=== PATIENT | male | born 1995 | race Caucasian/White ===

== ENCOUNTER 2016-10-30 13:06 | Emergency (ER) | payer SELFPAY ==
[~2016-10-30] VITALS: Ht 167.6 cm; Wt 70.0 kg
[~2016-10-30 13:06] MED LIST: CORTIS10A AD; TYLE3 PO
[2016-10-30 13:08] VITALS: BP 139/82; PULSE 76; RESP 20; TEMP 97.7; O2SAT 100
--- NOTE | 2016-10-30 13:48 | PD ---
HPI Chief Complaint: ENT Complaint Time Seen by Provider: 13:40 Travel History International Travel<30 days: No Contact w/Intl Traveler<30days: No Traveled to known affect area: No History of Present Illness HPI 21-year-old male with no significant past medical history presents for evaluation of cough and congestion and scratchy throat. Symptoms started 4 days ago. He has been using TheraFlu which seems to help. He reports that he had to miss work over the past 2 days and he is here requesting a note to return to work tomorrow. He is reporting improvement of his symptoms. He has had no fevers or chills. He reports that his younger brother has had a scratchy throat as well. Denies rash, recent travel. He has no other complaints. [facility] Past Medical History Immunizations Current: Yes Social History Alcohol Use: No Tobacco Use: No Substance Use: No Allergies-Medications (Allergen,Severity, Reaction): Coded Allergies: No Known Allergies (Verified , 10/30/16) Reported Meds & Prescriptions Reported Meds & Active Scripts Active Tylenol #3 (Acetaminophen/Codeine Phosphate) 300 Mg/30 Mg Tab 1 Tab PO Q6HPRN FOR PAIN Cortisporin Otic Suspension (Neomycin/Polymyxin/Hydrocortisone) 10 Ml Susp 4 Drop AD QID 10 Days Review of Systems Except as stated in HPI: all other systems reviewed are Neg Physical Exam Narrative GENERAL: Well-developed well-nourished male in no acute distress SKIN: Warm and dry. HEAD: Atraumatic. Normocephalic. EYES: Pupils equal and round. No scleral icterus. No injection or drainage. ENT: No nasal bleeding or discharge. Mucous membranes pink and moist. No oral pharyngeal erythema or exudate. NECK: Trachea midline. No JVD. No lymphadenopathy. Neck supple full range of motion. CARDIOVASCULAR: Regular rate and rhythm. No murmur appreciated. RESPIRATORY: No accessory muscle use. Clear to auscultation. Breath sounds equal bilaterally. Data Data Last Documented VS Vital Signs Date Time Temp Pulse Resp B/P Pulse Ox O2 Delivery O2 Flow Rate FiO2 10/30/16 13:08 97.7 76 20 139/82 100 Room Air MDM Medical Decision Making Medical Screen Exam Complete: Yes Emergency Medical Condition: No Medical Record Reviewed: Yes Differential Diagnosis Bronchitis, pharyngitis, tonsillitis, peritonsillar abscess, influenza, pneumonia, reactive airway disease Narrative Course 21-year-old male presents with 4 days of cough, congestion, scratchy throat. Physical examination is reassuring. He appears to have a viral upper respiratory infection. His primary motivation for coming here today is to receive a note to return to work tomorrow. He is not having an emergent medical condition. A medical screening exam was performed: At the time of evaluation the presenting medical condition was determined not to be of an emergent nature. The patient was given the option of receiving additional care, but declined. Patient was given options for additional community resources from which to obtain care. The Patient Has Been advised to seek medical attention for their presenting complaint. The patient has been advised to return to the ER at any time if an emergent condition develops. Diagnosis Primary Impression: Encounter for medical screening examination Disposition: [facility]-ED USE ONLY Condition: Stable Aki Wilson Oct 30, 2016 13:48
== END 2016-10-30 14:08 | disposition left against medical advice (07) ==
LOC: NEPK 13:06
DX: R05 Cough (principal)
CPT/HCPCS: 99281

== ENCOUNTER 2016-12-02 17:50 | Emergency (ER) | payer SELFPAY ==
[2016-12-02 17:51] VITALS: BP 138/81; PULSE 94; RESP 16; O2SAT 98
--- NOTE | 2016-12-02 18:46 | PD ---
Physical Exam Date Seen by Provider: Dec 02, 2016 Time Seen by Provider: 18:44 Narrative 21 yo male here for evaluation of back and neck pain. This started a few days ago after injury while "wrestling with buddies". Was pinned to the floor and hurt neck and back. has been resting and taking OTC meds to help pain with no relief. had an episode of tingling to the lower legs. No neurological deficits reported otherwise. No tingling anymore. Vitals are stable in triage. Awaiting Bed placement. Data Data Last Documented VS Vital Signs Date Time Temp Pulse Resp B/P Pulse Ox O2 Delivery O2 Flow Rate FiO2 12/02/16 17:51 94 16 138/81 98 MDM Medical Record Reviewed: Yes Supervised Visit with ROMARIO: Reyes Alas Dec 02, 2016 18:45
[2016-12-02] MEDS ORDERED: CYCL1TAB29 PO (18:53)
[2016-12-02] MEDS ORDERED: IBUP-232 PO (18:53)
[2016-12-02] MEDS ORDERED: NON-500T13 PO (18:53)
--- NOTE | 2016-12-02 19:00 | PD ---
HPI Chief Complaint: Musculoskeletal Complaint Time Seen by Provider: 18:54 Travel History International Travel<30 days: No Contact w/Intl Traveler<30days: No Traveled to known affect area: No History of Present Illness HPI 21-year-old male presents to emergency Department with injury to the neck and lower spine while wrestling with some friends 2 days prior to arrival. Patient states he did not have pain right away, but since yesterday morning he 's had bilateral neck pain and lower back pain, worse with movement. He denies upper extremity symptoms or lower extremity symptoms. He denies bowel or bladder issues. Pain is currently a 7/10 worse with movement. He has no known drug allergies. PFSH Past Medical History Immunizations Current: Yes Social History Alcohol Use: No Tobacco Use: No Substance Use: No Allergies-Medications (Allergen,Severity, Reaction): Coded Allergies: No Known Allergies (Verified , 10/30/16) Reported Meds & Prescriptions Reported Meds & Active Scripts Active Tylenol #3 (Acetaminophen/Codeine Phosphate) 300 Mg/30 Mg Tab 1 Tab PO Q6HPRN FOR PAIN Cortisporin Otic Suspension (Neomycin/Polymyxin/Hydrocortisone) 10 Ml Susp 4 Drop AD QID 10 Days Review of Systems Except as stated in HPI: all other systems reviewed are Neg General / Constitutional: No: Fever Eyes: No: Visual changes HENT: No: Headaches Cardiovascular: No: Chest Pain or Discomfort Respiratory: No: Shortness of Breath Gastrointestinal: No: Abdominal Pain Genitourinary: No: Dysuria Musculoskeletal: Positive: Myalgias, Limited ROM, Pain (see history present illness.) Skin: No Rash Neurologic: No: Weakness Psychiatric: No: Depression Endocrine: No: Polydipsia Hematologic/Lymphatic: No: Easy Bruising Physical Exam Narrative GENERAL: Patient appears in mild distress. SKIN: Warm and dry. Normal color. Normal turgor. No signs of trauma. HEAD: Atraumatic. Normocephalic. Nontender. EYES: Pupils equal and round. No scleral icterus. No injection or drainage. ENT: No nasal bleeding or discharge. Mucous membranes pink and moist. No dental injury. Pharynx is clear. Airway is patent. NECK: Trachea midline. No midline tenderness or step-off. Range of motion is 80% of full with mild discomfort in the soft tissue consistent with cervical strain with muscle spasm. Cervical spine is cleared utilizing nexus criteria. CARDIOVASCULAR: Regular rate and rhythm. RESPIRATORY: No accessory muscle use. Clear to auscultation. Breath sounds equal bilaterally. GASTROINTESTINAL: Abdomen soft, non-tender, nondistended. Hepatic and splenic margins not palpable. MUSCULOSKELETAL: Extremities without clubbing, cyanosis, or edema. No obvious deformities. Patient has full range of motion of both upper and lower extremities without restriction. NEUROLOGICAL: Awake and alert. No obvious cranial nerve deficits. Motor grossly within normal limits. Five out of 5 muscle strength in the arms and legs. Normal speech. PSYCHIATRIC: Appropriate mood and affect; insight and judgment normal. Data Data Last Documented VS Vital Signs Date Time Temp Pulse Resp B/P Pulse Ox O2 Delivery O2 Flow Rate FiO2 12/02/16 17:51 94 16 138/81 98 MDM Medical Decision Making Medical Screen Exam Complete: Yes Emergency Medical Condition: Yes Differential Diagnosis Cervical strain. Lumbar strain. Muscle spasm. Narrative Course Cervical spine is cleared utilizing nexus criteria. Patient will be given acetaminophen 500 mg 2 tabs every 6 hours when necessary pain #60. Patient given ibuprofen 600 mg every 6 hours when necessary #40. Patient given Flexeril 10 mg one every 8 hours when necessary #15. Note for work is given. Patient use heat and ice and gentle stretching as discussed. Patient follow-up if symptoms do not improve. Diagnosis Primary Impression: Cervical muscle strain Qualified Code: S16.1XXA - Cervical muscle strain, initial encounter Additional Impression: Lumbar strain Qualified Code: S39.012A - Lumbar strain, initial encounter Referrals: Primary Care Physician Patient Instructions: Cervical Neck Strain Exercises (GEN), Cervical Strain (ED ), General Instructions, Low Back Strain (ED), Lower Back Exercises (ED) Additional Instructions: Patient will be given acetaminophen 500 mg 2 tabs every 6 hours when necessary pain #60. Patient given ibuprofen 600 mg every 6 hours when necessary #40. Patient given Flexeril 10 mg one every 8 hours when necessary #15. Note for work is given. Patient use heat and ice and gentle stretching as discussed. Patient follow-up if symptoms do not improve. Scripts Ibuprofen 600 Mg [id number] Mg PO Q6H PRN (Pain/Inflammation) #40 TAB Prov:Fanny Mays MD 12/02/16 Cyclobenzaprine (Flexeril)10 Mg Tab10 Mg PO TID #15 TAB Prov:Fanny Mays MD 12/02/16 Acetaminophen (Non-Aspirin Pain Relief ES)500 Mg [id number] Mg PO Q6HR PRN (PAIN) # 60 TAB Prov:Fanny Mays MD 12/02/16 Disposition: 01 DISCHARGE HOME Condition: Stable Craig Yanez Dec 02, 2016 19:00
== END 2016-12-02 19:43 | disposition home or self-care (01) ==
LOC: NEPK 17:50
DX: S16.1XXA Strain of muscle, fascia and tendon at neck level, initial encounter (principal); S39.012A Strain of muscle, fascia and tendon of lower back, initial encounter; X50.0XXA Overexertion from strenuous movement or load, initial encounter; Y93.72 Activity, wrestling; Y92.9 Unspecified place or not applicable
CPT/HCPCS: 99283